=== PATIENT | female | born 1995 | race Caucasian/White ===

== ENCOUNTER 2020-10-27 08:54 | Inpatient (IN) | payer OTHER ==
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
[2020-10-27] MEDS ORDERED: Sodium Chloride 0.9% 10 ML Syringe FLUSH PRN (10:03)
[2020-10-27] MEDS ORDERED: Nalbuphine 10 MG/1 ML Vial IVPUSH PRN (10:03)
[2020-10-27] MEDS ORDERED: Lidocaine 1% 50 ML MDV INJECT ONE (10:03)
[2020-10-27] MEDS ORDERED: Ondansetron 4 MG/2 ML SDV IVPUSH PRN (10:03)
[2020-10-27] MEDS ORDERED: Oxytocin/Lactated Ringers 10 UNIT/1,000 ML BAG IV SCH ×2 (10:15→21:00)
--- NOTE | 2020-10-27 13:19 | PCM.SN.2 ---
- Free Text/Narrative Note: Progress note: Contractions q. 3 to 5 minutes. Moderate intensity. Lasted for 45 to 60 seconds. Patient tolerating them well. heart tones within normal limits. Vital signs are stable. Patient is afebrile. Cervical exam unchanged from previously observed changes: 2 cm, 80% effaced, soft, -2 to -3, mid position, cephalic presentation, bag medellin intact. Assessment/plan: Slow progression of labor. Patient asked if she would like labor enhance with AROM. She declines at this time. We will continue to monitor.
[2020-10-27] MEDS ORDERED: ePHEDrine 50 MG/ML SDV IVPUSH PRN (15:23)
[2020-10-27] MEDS ORDERED: diphenhydrAMINE 50 MG/ML SDV IVPUSH PRN (15:23)
[2020-10-27] MEDS: Lactated Ringers 1,000 ML IV SCH ×3 (16:41→20:47)
[2020-10-27] MEDS: fentaNYL 100 MCG/2 ML SDV EPIDUR PRN (16:43)
[2020-10-27] MEDS: Bupivacaine/fentaNYL/NS 100 ML Bag EPIDUR PRN (16:44)
--- NOTE | 2020-10-27 18:23 | PCM.PREANE ---
Preanesthetic Assessment - Procedure Proposed Procedure: Labor Epidural - Anesthesia/Transfusion/Family Hx Anesthesia History: Prior Anesthesia Without Reaction Family History of Anesthesia Reaction: No Transfusion History: No Prior Transfusion(s) - Review of Systems General: No Symptoms Pulmonary: No Symptoms Cardiovascular: No Symptoms Gastrointestinal: No Symptoms Neurological: No Symptoms Other: Reports: None - Physical Assessment Vital Signs: Last Vital Signs Temp 36.7 C 10/27/20 10:04 Pulse 82 10/27/20 10:04 Resp 16 10/27/20 10:04 BP 138/80 10/27/20 10:04 Pulse Ox 98 10/27/20 10:04 Height: 1.6 m Weight: 78.471 kg ASA Class: 5E Emergency Mental Status: Alert & Oriented x3 Airway Class: Mallampati = 2 Dentition: Reports: Normal Dentition Thyro-Mental Finger Breadths: 3 Mouth Opening Finger Breadths: 3 ROM/Head Extension: Full Lungs: Clear to Auscultation, Normal Respiratory Effort Cardiovascular: Regular Rate, Regular Rhythm - Lab Values: Laboratory Last Values WBC 12.30 K/mm3 (3.98-10.04) H 10/27/20 10:18 RBC 4.24 M/mm3 (3.98-5.22) 10/27/20 10:18 Hgb 13.0 gm/dl (11.2-15.7) 10/27/20 10:18 Hct 37.7 % (34.1-44.9) 10/27/20 10:18 MCV 88.9 fl (79.4-94.8) 10/27/20 10:18 MCH 30.7 pg (25.6-32.2) 10/27/20 10:18 MCHC 34.5 g/dl (32.2-35.5) 10/27/20 10:18 RDW Std Deviation 40.3 fL (36.4-46.3) 10/27/20 10:18 Plt Count 243 K/mm3 (182-369) 10/27/20 10:18 MPV 10.5 fl (9.4-12.3) 10/27/20 10:18 SARS-CoV-2 RNA (BRAYDEN) Negative (NEGATIVE) 10/27/20 10:15 - Allergies Allergies/Adverse Reactions: Allergies Allergy/AdvReac Type Severity Reaction Status Date / Time No Known Allergies Allergy Verified 10/27/20 10:03 - Anesthesia Plan Pre-Op Medication Ordered: None - Acknowledgements Anesthesia Type Planned: Epidural Pt an Appropriate Candidate for the Planned Anesthesia: Yes Alternatives and Risks of Anesthesia Discussed w Pt/Guardian: Yes Pt/Guardian Understands and Agrees with Anesthesia Plan: Yes PreAnesthesia Questionnaire - Past Health History Medical/Surgical History: Denies 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: - Past Surgical History HEENT Surgical History: Reports: Other (See Below) Other HEENT Surgeries/Procedures: Polyps removed from sinuses Musculoskeletal Surgical History: Reports: Other (See Below) Other Musculoskeletal Surgeries/Procedures:: Surgery on right elbow fracture, knee surgery - SUBSTANCE USE Tobacco Use Status *Q: Never Tobacco User Second Hand Smoke Exposure: No Recreational Drug Use History: No - HOME MEDS Home Medications: Home Meds Pnv No.95/Ferrous Fum/Folic AC [ Tablet] 1 tab PO DAILY 10/27/20 [History] - CURRENT (IN HOUSE) MEDS Current Meds: Current Medications Diphenhydramine HCl (Diphenhydramine 50 Mg/Ml Sdv) 25 mg IVPUSH Q6H PRN PRN Reason: pruritis Ephedrine Sulfate (Ephedrine 50 Mg/Ml Sdv) 5 mg IVPUSH ASDIRECTED PRN PRN Reason: Hypotension Fentanyl (Fentanyl 100 Mcg/2 Ml Sdv) 100 mcg EPIDUR Q3H PRN PRN Reason: Pain Last Admin: 10/27/20 16:43 Dose: 100 mcg Documented by: Fentanyl/Bupivacaine HCl (Bupivacaine/Fentanyl/Ns 100 Ml Bag) 100 ml EPIDUR ASDIRECTED PRN PRN Reason: Pain Last Admin: 10/27/20 16:44 Dose: 100 ml Documented by: Oxytocin/Lactated Ringer's (Pitocin In Lr 10 Units/1,000 Ml) 10 unit in 1,000 mls @ 500 mls/hr IV .CONTINUOUS FELIPE Lactated Ringer's (Ringers, Lactated) 1,000 mls @ 100 mls/hr IV ASDIRECTED FELIPE Last Admin: 10/27/20 17:47 Dose: 100 mls/hr Documented by: Nalbuphine HCl (Nalbuphine 10 Mg/1 Ml Vial) 10 mg IVPUSH Q2H PRN PRN Reason: Pain Ondansetron HCl (Ondansetron 4 Mg/2 Ml Sdv) 4 mg IVPUSH Q4H PRN PRN Reason: Nausea/Vomiting Sodium Chloride (Sodium Chloride 0.9% 10 Ml Syringe) 10 ml FLUSH ASDIRECTED PRN PRN Reason: Keep Vein Open Discontinued Medications Lidocaine HCl (Lidocaine 1% 50 Ml Mdv) 50 ml INJECT ONETIME ONE Stop: 10/27/20 10:04
[2020-10-27] MEDS ORDERED: Calcium Carbonate 500 MG Tab.Chew PO PRN (22:37)
[2020-10-28] MEDS ORDERED: Bupivacaine 0.25% 10 ML SDV ONE ×2
[2020-10-28] MEDS: Bupivacaine/fentaNYL/NS 100 ML Bag EPIDUR PRN ×2 (00:21→05:27)
[2020-10-28] MEDS: fentaNYL 100 MCG/2 ML SDV EPIDUR PRN (00:21)
[2020-10-28] MEDS: Lactated Ringers 1,000 ML IV SCH ×2 (01:10→05:29)
--- NOTE | 2020-10-28 06:45 | PCM.SN.2 ---
- Free Text/Narrative Note: Delivery note: Stage I: Rich is a 25-year-old 1 now para 1-0-0-1 white female admitted on 10/27/2020 at 40-4/7 weeks gestational age with an BRADY of 10/23/2020 in active labor with progression of cervical dilation. She reported contractions started over the course of the previous 12 hours that had increased to frequency of every 3 to 4 minutes, moderate intensity requiring her to breathe through them. She continued to make fair progress in labor. Augmentation with AROM was undertaken with resultant moderately thick meconium stained amniotic fluid. Because of her less than optimal labor pattern Pitocin augmentation was started. Patient underwent labor analgesia with epidural. Patient had a Gaming catheter placed and sequential compression devices were used to decrease likelihood of DVT. Intrauterine pressure catheter was placed to monitor the contraction strength more accurately. She continued to progress and achieved complete cervical dilation at about 0330 hrs. on 10/29/2019. Gaming catheter was removed and patient was allowed to push. Stage II: Patient pushed until approximately 0600 hrs. and as she progressed she began having moderate to severe variable decelerations. Discussion was held with her and her concerning assistance with vacuum extraction because of these decelerations that were failing to recover in between contractions. She appeared to understand and agreed to proceed. Vacuum extractor was applied and with 1 contraction/2 pushes the patient delivered a viable, hutchinson, female named Carter Ojeda. The baby was delivered at 0602 hrs. on 10/28/2020 by vacuum extraction. There were no pop offs and the vacuum extraction delivery was unremarkable and uncomplicated. Baby delivered in a left occiput anterior position. She was placed on mom's abdomen and dried with warm blanket. Nose and mouth were bulb suction. Pitocin rate was increased to 500 cc/h to facilitate increase in uterine tone and decrease likelihood of bleeding. The patient had a second-degree perineal laceration. No other lacerations were noted. This laceration was repaired with 3-0 Monocryl suture in a routine fashion. Patient tolerated this well. The baby weighed 3530 g, 7 pounds 12.5 ounces. Apgars were 8 and 9. Stage III: The umbilical cord was allowed to pulsate for approximately 3 minutes at which time it was clamped x2 and cut by the baby's father Jaiver. Cord blood was obtained. The umbilical cord had 3 vessels present within it. The placenta delivered in a Espitia presentation, appeared intact and complete and was discarded per patient desire. It was meconium-stained. Estimated blood loss was 200 cc. Patient plans to breast-feed. Condition: Good.
[2020-10-28] MEDS ORDERED: Docusate Sodium 100 MG Cap PO PRN (06:47)
[2020-10-28] MEDS ORDERED: Witch Hazel Medicated Pads 40/Jar TOP PRN (06:47)
[2020-10-28] MEDS ORDERED: Benzocaine/Menthol 20%-0.5% Spray 56 GM Canister TOP PRN (06:47)
[2020-10-28] MEDS: Ibuprofen 600 MG Tab PO PRN ×3 (09:42→20:29)
[2020-10-28] MEDS: Prenatal Multivitamin with Calcium/Folic Acid/Iron Tab PO SCH (09:50)
--- NOTE | 2020-10-28 19:24 | PCM48HPAN ---
Post Anesthesia Note - EVALUATION WITHIN 48HRS OF ANESTHETIC Vital Signs in Normal Range: Yes Patient Participated in Evaluation: Yes Respiratory Function Stable: Yes Airway Patent: Yes Cardiovascular Function Stable: Yes Hydration Status Stable: Yes Pain Control Satisfactory: Yes Nausea and Vomiting Control Satisfactory: Yes Mental Status Recovered: Yes Vital Signs: Last Vital Signs Temp 36.2 C 10/28/20 15:23 Pulse 81 10/28/20 15:23 Resp 16 10/28/20 15:23 BP 114/71 10/28/20 15:23 Pulse Ox 96 10/28/20 15:23 - COMMENTS/OBSERVATIONS Free Text/Narrative:: Nursing baby in bed. No further questions or concerns at this time. Epidural worked well, required a rebolus for a hot spot on her left side. Covered until pushing and then was painful again.
[2020-10-28] MEDS: Acetaminophen 325 MG Tab PO PRN (22:20)
[2020-10-29] MEDS: Acetaminophen 325 MG Tab PO PRN (03:26)
[2020-10-29] MEDS: Ibuprofen 600 MG Tab PO PRN ×2 (03:26→08:30)
--- NOTE | 2020-10-29 08:00 | PCM.DCSUM1 ---
Discharge Summary - Hospital Course Free Text/Narrative:: Stage I: Rich is a 25-year-old 1 now para 1-0-0-1 white female admitted on 10/27/2020 at 40-4/7 weeks gestational age with an BRADY of 10/23/2020 in active labor with progression of cervical dilation. She reported contractions started over the course of the previous 12 hours that had increased to frequency of every 3 to 4 minutes, moderate intensity requiring her to breathe through them. She continued to make fair progress in labor. Augmentation with AROM was undertaken with resultant moderately thick meconium stained amniotic fluid. Because of her less than optimal labor pattern Pitocin augmentation was started. Patient underwent labor analgesia with epidural. Patient had a Gaming catheter placed and sequential compression devices were used to decrease likelihood of DVT. Intrauterine pressure catheter was placed to monitor the contraction strength more accurately. She continued to progress and achieved complete cervical dilation at about 0330 hrs. on 10/29/2019. Gaming catheter was removed and patient was allowed to push. Stage II: Patient pushed until approximately 0600 hrs. and as she progressed she began having moderate to severe variable decelerations. Discussion was held with her and her concerning assistance with vacuum extraction because of these decelerations that were failing to recover in between contractions. She appeared to understand and agreed to proceed. Vacuum extractor was applied and with 1 contraction/2 pushes the patient delivered a viable, hutchinson, female named Carter Ojeda. The baby was delivered at 0602 hrs. on 10/28/2020 by vacuum extraction. There were no pop offs and the vacuum extraction delivery was unremarkable and uncomplicated. Baby delivered in a left occiput anterior position. She was placed on mom's abdomen and dried with warm blanket. Nose and mouth were bulb suction. Pitocin rate was increased to 500 cc/h to facilitate increase in uterine tone and decrease likelihood of bleeding. The patient had a second-degree perineal laceration. No other lacerations were noted. This laceration was repaired with 3-0 Monocryl suture in a routine fashion. Patient tolerated this well. The baby weighed 3530 g, 7 pounds 12.5 ounces. Apgars were 8 and 9. Stage III: The umbilical cord was allowed to pulsate for approximately 3 minutes at which time it was clamped x2 and cut by the baby's father Javier. Cord blood was obtained. The umbilical cord had 3 vessels present within it. The placenta delivered in a Espitia presentation, appeared intact and complete and was discarded per patient desire. It was meconium-stained. Estimated blood loss was 200 cc. Patient plans to breast-feed. patient has done well. She is voiding well, has minimal lochia and is ambulating well. She has some suture pain but this is manageable. She is desiring discharge home. Condition: Good. Diagnosis: Stroke: No - Discharge Data Discharge Date: 10/29/20 Discharge Disposition: Home, Self-Care 01 Condition: Good - Referral to Home Health Primary Care Physician: Michelle Batista MD - Discharge Diagnosis/Problem(s) (1) 40 weeks gestation of SNOMED Code(s): 56949482 ICD Code: Z3A.40 - 40 WEEKS GESTATION OF Status: Acute Current Visit: Yes - Patient Instructions Diet: Regular Diet as Tolerated (Nursing diet with increased calories and calcium as recommended) Activity: As Tolerated (No intercourse or tampons until bleeding resolves) Driving: May Drive Today Showering/Bathing: May Shower Showering/Bathing, Other: May take a bath Notify Provider of: Fever, Increased Pain, Swelling and Redness, Nausea and/or Vomiting - Discharge Plan Home Medications: Home Meds Pnv No.95/Ferrous Fum/Folic AC [ Tablet] 1 tab PO DAILY 10/27/20 [History] Acetaminophen [Tylenol] 650 mg PO Q4H PRN tablet 10/29/20 [Rx] Ibuprofen [Motrin] 600 mg PO Q4H PRN tablet 10/29/20 [Rx] Referrals: Michelle Batista MD [Primary Care Provider] - (Return to clinicDr. Christensen to call for an appointment.) - Discharge Summary/Plan Comment DC Time >30 min.: No Discharge Summary/Plan Comment: Discharge instructions: 1. Discharge home 2. Diet, activity and follow-up discussed with patient. Recommend nursing diet with increased calories and calcium. 3. Precautions given concern increased pain, bleeding, temperature, signs/symptoms of DVT/PE. 4. Medications per home medication was printed, discussed with and given to the patient. 5. [facility] Diagnosis: Term -delivered Condition: Good - Patient Data Vitals - Most Recent: Last Vital Signs Temp 36.6 C 10/29/20 04:26 Pulse 76 10/29/20 04:26 Resp 15 10/29/20 04:26 BP 95/54 L 10/29/20 04:26 Pulse Ox 93 L 10/29/20 04:26 Weight - Most Recent: 78.471 kg I&O - Last 24 hours: Intake & Output 10/28/20 10/29/20 10/29/20 22:59 06:59 14:59 Intake Total 480 Balance 480 Med Orders - Current: Current Medications Acetaminophen (Acetaminophen 325 Mg Tab) 650 mg PO Q4H PRN PRN Reason: mild pain or fever Last Admin: 10/29/20 03:26 Dose: 650 mg Documented by: Benzocaine/Menthol (Benzocaine/Menthol 20%-0.5% [place] 56 Gm Canister) 0 gm TOP ASDIRECTED PRN PRN Reason: Perineal Comfort Measure Last Admin: 10/28/20 09:51 Dose: 1 spray Documented by: Docusate Sodium (Docusate Sodium 100 Mg Cap) 100 mg PO BID PRN PRN Reason: Constipation Ibuprofen (Ibuprofen 600 Mg Tab) 600 mg PO Q4H PRN PRN Reason: Mild pain or fever Last Admin: 10/29/20 03:26 Dose: 600 mg Documented by: Prenat Multivit/Neck Band Maker/Iron/Folic Ac ( Multivitamin With Calcium/Folic Acid/Iron Tab) 1 each PO DAILY FELIPE Last Admin: 10/28/20 09:50 Dose: 1 each Documented by: Alex Taylor (Alex Taylor Medicated Pads 40/Jar) 1 pad TOP ASDIRECTED PRN PRN Reason: Perineal Comfort Measure Last Admin: 10/28/20 09:51 Dose: 1 pad Documented by: Discontinued Medications Calcium Carbonate/Glycine (Calcium Carbonate 500 Mg Tab.Chew) 500 mg PO Q2H PRN PRN Reason: Indigestion Last Admin: 10/27/20 22:48 Dose: 500 mg Documented by: Diphenhydramine HCl (Diphenhydramine 50 Mg/Ml Sdv) 25 mg IVPUSH Q6H PRN PRN Reason: pruritis Ephedrine Sulfate (Ephedrine 50 Mg/Ml Sdv) 5 mg IVPUSH ASDIRECTED PRN PRN Reason: Hypotension Fentanyl (Fentanyl 100 Mcg/2 Ml Sdv) 100 mcg EPIDUR Q3H PRN PRN Reason: Pain Last Admin: 10/28/20 00:21 Dose: 100 mcg Documented by: Fentanyl/Bupivacaine HCl (Bupivacaine/Fentanyl/Ns 100 Ml Bag) 100 ml EPIDUR ASDIRECTED PRN PRN Reason: Pain Last Admin: 10/28/20 05:27 Dose: 100 ml Documented by: Oxytocin/Lactated Ringer's (Pitocin In Lr 10 Units/1,000 Ml) 10 unit in 1,000 mls @ 500 mls/hr IV .CONTINUOUS FELIPE Lactated Ringer's (Ringers, Lactated) 1,000 mls @ 100 mls/hr IV ASDIRECTED FELIPE Last Admin: 10/28/20 05:29 Dose: 100 mls/hr Documented by: Oxytocin/Lactated Ringer's (Pitocin In Lr 10 Units/1,000 Ml) 10 unit in 1,000 mls @ 12 mls/hr IV TITRATE FELIPE; Protocol Last Titration: 10/28/20 06:55 Dose: 41.67 munits/min, 250 mls/hr Documented by: Lidocaine HCl (Lidocaine 1% 50 Ml Mdv) 50 ml INJECT ONETIME ONE Stop: 10/27/20 10:04 Nalbuphine HCl (Nalbuphine 10 Mg/1 Ml Vial) 10 mg IVPUSH Q2H PRN PRN Reason: Pain Ondansetron HCl (Ondansetron 4 Mg/2 Ml Sdv) 4 mg IVPUSH Q4H PRN PRN Reason: Nausea/Vomiting Sodium Chloride (Sodium Chloride 0.9% 10 Ml Syringe) 10 ml FLUSH ASDIRECTED PRN PRN Reason: Keep Vein Open
[2020-10-29] MEDS: Prenatal Multivitamin with Calcium/Folic Acid/Iron Tab PO SCH (08:32)
== END 2020-10-29 13:45 | disposition home or self-care (01) | DRG 807 ==
LOC: JD.OBCHECK 08:54 → JD.OB 10:04 → OBSVTOIN 10-28 06:02 → JD.OB 10-28 06:03
PROVIDERS: ADMIT Obstetrics & Gynecology; ATTEND Obstetrics & Gynecology
PROC: 10D07Z6 Extraction of Products of Conception, Vacuum, Via Natural or Artificial Opening (ICD-10-PCS; principal; 2020-10-28)
PROC: 0KQM0ZZ Repair Perineum Muscle, Open Approach (ICD-10-PCS; 2020-10-28)
PROC: 10907ZC Drainage of Amniotic Fluid, Therapeutic from Products of Conception, Via Natural or Artificial Opening (ICD-10-PCS; 2020-10-28)
PROC: 3E0R3BZ Introduction of Anesthetic Agent into Spinal Canal, Percutaneous Approach (ICD-10-PCS; 2020-10-28)
DX: O48.0 Post-term pregnancy (principal); Z37.0 Single live birth; Z3A.40 40 weeks gestation of pregnancy; O77.0 Labor and delivery complicated by meconium in amniotic fluid; O76 Abnormality in fetal heart rate and rhythm complicating labor and delivery; O70.1 Second degree perineal laceration during delivery; Z20.822 Contact with and (suspected) exposure to COVID-19
CPT/HCPCS: 01967; 36415; 51703; 59025; 59409; 85027; 86592; A9270-GY; J2590; J3010; J3490; J7120; U0002

== ENCOUNTER 2023-05-04 07:04 | Inpatient (IN) | payer BC ==
[2023-05-04] MEDS ORDERED: Lidocaine 1% 50 ML MDV INJECT PRN (07:07)
[2023-05-04] MEDS ORDERED: Nalbuphine HCl 10 MG/ 1ML Amp IVPUSH PRN (07:07)
[2023-05-04] MEDS ORDERED: Sodium Chloride 0.9% 10 ML Syringe FLUSH PRN (07:07)
[2023-05-04] MEDS ORDERED: Oxytocin/Lactated Ringers 30 UNIT/500 ML BAG IV SCH ×2 (07:15)
[2023-05-04 07:26] LABS: BASOPHILS PERCENT AUTO 0.2 % (0.0-1.0); EOSINOPHILS ABSOLUTE AUTO 0.1 K/mm3 (0.0-0.4); EOSINOPHILS PERCENT AUTO 0.9 % (0.0-6.0); HEMATOCRIT 33.6 % (37.0-47.0); HEMOGLOBIN 11.9 gm/dl (12.0-16.0); IMMATURE GRAN ABSOLUTE AUTO 0.04 K/mm3 (0.00-0.05); IMMATURE GRAN PERCENT AUTO 0.5 % (0.0-0.4); LYMPHOCYTES ABSOLUTE AUTO 1.7 K/mm3 (1.0-4.8); LYMPHOCYTES PERCENT AUTO 20.1 % (24.0-44.0); MEAN CORPUSCULAR HEMOGLOBIN 31.1 pg (28.0-32.0); MEAN CORPUSCULAR HGB CONC 35.4 g/dl (32.0-36.0); MEAN CORPUSCULAR VOLUME 87.7 fl (83.0-99.0); MEAN PLATELET VOLUME 10.5 fl (9.4-12.3); MONOCYTES ABSOLUTE AUTO 0.3 K/mm3 (0.0-0.8); MONOCYTES PERCENT AUTO 3.8 % (0.0-8.0); NEUTROPHILS ABSOLUTE AUTO 6.1 K/mm3 (1.8-7.7); NEUTROPHILS PERCENT AUTO 74.5 % (41.0-71.0); PLATELET COUNT,PLT 221 K/mm3 (150-400); RED BLOOD CELL COUNT 3.83 M/mm3 (4.10-5.30); WHITE BLOOD CELL COUNT,WBC 8.19 K/mm3 (3.9-11.3)
[2023-05-04] MEDS: Lactated Ringers 1,000 ML IV SCH ×2 (10:06→12:22)
[2023-05-04] MEDS: Sodium Chloride 0.9% 10 ML Syringe FLUSH SCH ×2 (10:17→22:31)
[2023-05-04] MEDS ORDERED: ePHEDrine 50 MG/ML SDV IVPUSH PRN (10:34)
[2023-05-04] MEDS ORDERED: fentaNYL 100 MCG/2 ML SDV EPIDUR PRN (10:34)
[2023-05-04] MEDS ORDERED: Bupivacaine/fentaNYL/NS 100 ML Bag EPIDUR PRN (10:34)
[2023-05-04] MEDS ORDERED: diphenhydrAMINE 50 MG/ML SDV IVPUSH PRN (10:34)
[2023-05-04] MEDS: Ondansetron 4 MG/2 ML SDV IVPUSH PRN ×2 (11:16→15:28)
[2023-05-04] MEDS ORDERED: fentaNYL 100 MCG/2 ML SDV ONE (16:28)
[2023-05-04] MEDS ORDERED: Dexmedetomidine 200 MCG/2 ML SDV ONE (16:28)
[2023-05-04] MEDS ORDERED: Methylergonovine 0.2 MG/1 ML Amp IM PRN (16:53)
[2023-05-04] MEDS ORDERED: Docusate Sodium 100 MG Cap PO PRN (16:53)
[2023-05-04] MEDS ORDERED: Witch Hazel Medicated Pads 40/Jar TOP PRN (16:53)
[2023-05-04] MEDS ORDERED: Benzocaine/Menthol 20%-0.5% Spray 78 GM Cannister TOP PRN (16:53)
[2023-05-04] MEDS ORDERED: Lidocaine 1% 10 ML MDV ONE (18:00)
[2023-05-04] MEDS: Acetaminophen 325 MG Tab PO PRN (20:00)
[2023-05-04] MEDS: Ibuprofen 600 MG Tab PO PRN (21:31)
[2023-05-05] MEDS: Ibuprofen 600 MG Tab PO PRN ×3 (04:21→18:51)
[2023-05-05] MEDS: Acetaminophen 325 MG Tab PO PRN ×3 (04:22→12:30)
[2023-05-05] MEDS: Sodium Chloride 0.9% 10 ML Syringe FLUSH SCH (11:17)
== END 2023-05-05 19:50 | disposition home or self-care (01) | DRG 560 ==
LOC: JD.OB 07:04 → UNDOADMOB 07:04 → OBSVTOIN 15:14 → INTOOBSV 15:14 → JD.OB 15:14 → UNDODISOB 15:15
PROVIDERS: ADMIT Obstetrics & Gynecology; ATTEND Obstetrics & Gynecology
PROC: 10E0XZZ Delivery of Products of Conception, External Approach (ICD-10-PCS; principal; 2023-05-04)
PROC: 10907ZC Drainage of Amniotic Fluid, Therapeutic from Products of Conception, Via Natural or Artificial Opening (ICD-10-PCS; 2023-05-04)
PROC: 3E033VJ Introduction of Other Hormone into Peripheral Vein, Percutaneous Approach (ICD-10-PCS; 2023-05-04)
PROC: 0HQ9XZZ Repair Perineum Skin, External Approach (ICD-10-PCS; 2023-05-04)
PROC: 3E0R3BZ Introduction of Anesthetic Agent into Spinal Canal, Percutaneous Approach (ICD-10-PCS; 2023-05-04)
PROC: 00HU33Z Insertion of Infusion Device into Spinal Canal, Percutaneous Approach (ICD-10-PCS; 2023-05-04)
DX: O70.0 First degree perineal laceration during delivery (principal); Z37.0 Single live birth; O69.81X0 Labor and delivery complicated by cord around neck, without compression, not applicable or unspecified; Z3A.39 39 weeks gestation of pregnancy; Z98.890 Other specified postprocedural states; Z67.11 Type A blood, Rh negative
CPT/HCPCS: 36415; 51701; 51702; 59025; 59409; 85025; 86592; 86850; 86870; 86900; 86901; A9270-GY; J2210; J2405; J3010; J3490; J7120; J7999